=== PATIENT | female | born 1985 | race Caucasian/White ===

== ENCOUNTER 2020-08-12 10:37 | Outpatient (CLI) | payer OTHER, SELFPAY ==
--- NOTE | 2020-08-12 12:00 | NEURO_ITS ---
Impression: # Complains of tingling and pain in hands. # Mild evolving right Carpal Tunnel Syndrome. # No ulnar neuropathy. # Normal needle/EMG exam. Nerve Conduction Studies Anti Sensory Summary Table Stim Site NR Peak (ms) P-T Amp (?V) Site1 Site2 Delta-P (ms) Dist (cm) Diego (m/s) Left Median Anti Sensory (2-3nd Digit) Wrist 3.0 97.4 Wrist 2-3nd Digit 3.0 14.0 47 Wrist 2.8 84.2 Wrist 2-3nd Digit 3.0 14.0 47 Right Median Anti Sensory (2-3nd Digit) Wrist 2.8 78.4 Wrist 2-3nd Digit 2.8 14.0 50 Wrist 2.7 70.3 Wrist 2-3nd Digit 2.8 14.0 50 Left Radial Anti Sensory (Base 1st Digit) Wrist 1.9 19.8 Wrist Base 1st Digit 1.9 0.0 Right Radial Anti Sensory (Base 1st Digit) Wrist 2.1 27.2 Wrist Base 1st Digit 2.1 0.0 Left Ulnar Anti Sensory (5th Digit) Wrist 2.4 41.6 Wrist 5th Digit 2.4 14.0 58 Right Ulnar Anti Sensory (5th Digit) Wrist 2.1 44.6 Wrist 5th Digit 2.1 14.0 67 Motor Summary Table Stim Site NR Onset (ms) O-P Amp (mV) Site1 Site2 Delta-0 (ms) Dist (cm) Diego (m/s) Left Median Motor (Abd Poll Brev) Wrist 3.4 4.3 Elbow Wrist 5.0 31.0 62 Elbow 8.4 2.0 Right Median Motor (Abd Poll Brev) Wrist 3.5 1.5 Elbow Wrist 4.8 29.0 60 Elbow 8.3 1.1 Left Ulnar Motor (Abd Dig Minimi) Wrist 2.6 6.1 A Elbow Wrist 5.0 30.0 60 A Elbow 7.6 3.0 Right Ulnar Motor (Abd Dig Minimi) Wrist 2.2 5.6 A Elbow Wrist 4.8 29.0 60 A Elbow 7.0 4.7 F Wave Studies NR F-Lat (ms) L-R F-Lat (ms) Left Median (Mrkrs) (Abd Poll Brev) 27.86 1.14 Right Median (Mrkrs) (Abd Poll Brev) 26.72 1.14 Left Ulnar (Mrkrs) (Abd Dig Min) 27.45 0.02 Right Ulnar (Mrkrs) (Abd Dig Min) 27.47 0.02 EMG Side Muscle Nerve Root Ins Act Fibs Amp Dur Recrt Comment Right 1stDorInt Ulnar C8-T1 Nml Nml Nml Nml Nml Right Ext Indicis Radial (Post Int) C7-8 Nml Nml Nml Nml Nml Right Ext Digitorum Radial (Post Int) C7-8 Nml Nml Nml Nml Nml Right BrachioRad Radial C5-6 Nml Nml Nml Nml Nml Right PronatorTeres Median C6-7 Nml Nml Nml Nml Nml Right Abd Poll Brev Median C8-T1 Nml Nml Nml Nml Nml Left 1stDorInt Ulnar C8-T1 Nml Nml Nml Nml Nml Left Ext Indicis Radial (Post Int) C7-8 Nml Nml Nml Nml Nml Left Ext Digitorum Radial (Post Int) C7-8 Nml Nml Nml Nml Nml Left BrachioRad Radial C5-6 Nml Nml Nml Nml Nml Left PronatorTeres Median C6-7 Nml Nml Nml Nml Nml Left Abd Poll Brev Median C8-T1 Nml Nml Nml Nml Nml MTDD
== END 2020-08-12 10:38 | disposition home or self-care (01) ==
LOC: ANHNEURO 10:38
PROVIDERS: PCP Internal Medicine; Visit Provider Plastic Surgery
DX: R20.2 Paresthesia of skin (principal); G56.01 Carpal tunnel syndrome, right upper limb
CPT/HCPCS: 95886; 95911

== ENCOUNTER → 2020-08-20 15:23 | Outpatient (CLI) | payer OTHER, SELFPAY ==
--- NOTE | ~2020-08-20 | XR_ITS ---
EXAMINATION: XR wrist LT min 3V, XR wrist RT min 3V DATE: 08/20/2020 15:47 INDICATION: Bilateral wrist pain. TECHNIQUE: 1. Posteroanterior, ulnar deviation, oblique, and lateral views of the left wrist were obtained. 2. Posteroanterior, ulnar deviation, oblique, and lateral views of the rightr wrist were obtained. 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 Alignment is otherwise normal. No fracture. Remaining joint spaces are relatively preserved. No cortical erosions or suggest osteonecrosis. IMPRESSION: 1. Symmetric bilateral 3-4 mm ulnar minus variance with moderate osteoarthritis at the distal radioul samuel joints Reviewed, dictated and finalized at location B. CTOR OF CARDIOLOGY IMPRESSION: 1. 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
== END ==
PROVIDERS: Visit Provider Plastic Surgery
DX: M19.031 Primary osteoarthritis, right wrist (principal); M19.032 Primary osteoarthritis, left wrist
CPT/HCPCS: 73110

== ENCOUNTER → 2020-08-20 15:24 | Outpatient (CLI) | payer OTHER, SELFPAY ==
--- NOTE | ~2020-08-20 | XR_ITS ---
EXAMINATION: XR lumbar spine 2-3V EXAM DATE: 08/20/2020 15:46 INDICATION: Dorsalgia. Right lower back pain. Symptoms 5 years. TECHNIQUE: Lumber spine frontal, lateral, lateral L5-S1 projections for interpretation. There is no prior study for comparison. FINDINGS: There is about 6 mm anterolisthesis L4 on L5 with mild loss of this disc height. The verte bral body and disc heights are otherwise well maintained. The vertebral bodies are otherwise aligned. There is moderate lower lumbar facet arthropathy. No spondylolysis. Sacrum, sacroiliac joints, sacra l arcuate lines are intact. Paraspinal soft tissue is unremarkable. IMPRESSION: 1. L4-5 grade 1 anterolisthesis. 2. Moderate lower lumbar facet arthropathy. Reviewed, dictated and finalized at location A. T [facility]
== END ==
PROVIDERS: Visit Provider Internal Medicine
DX: M54.9 Dorsalgia, unspecified (principal)
CPT/HCPCS: 72100

== ENCOUNTER → 2020-10-08 14:04 | Outpatient (CLI) | payer OTHER, SELFPAY ==
--- NOTE | ~2020-10-08 | XR_ITS ---
. EXAMINATION: XR knee LT 3V DATE: 10/08/2020 14:28 INDICATION: Left knee pain TECHNIQUE: [place] and standing AP and lateral views of the left knee were obtained COMPARISON: None. FINDINGS: There is mild anterior and lateral subluxation of the tibial plateau relative to the distal femur. Th ere is also mild lateral patellar subluxation. No fracture. Moderate joint space narrowing at the med ial tibial plateau. Moderate to large marginal osteophytes in all 3 compartments. Small left knee mercy nt effusion at the suprapatellar pouch. There are couple small ossicles likely loose osteochondral jaimie dies within a recess of the posterior medial aspect of the knee. IMPRESSION: 1. Moderate medial compartment predominant left knee tricompartmental osteoarthritis with small knee joint effusion. Reviewed, dictated and finalized at location A. IMPRESSION: 1. Moderate medial compartment predominant left knee tricompartmental osteoarth ritis with small knee joint effusion.
== END ==
PROVIDERS: PCP Internal Medicine; Visit Provider Internal Medicine
DX: M25.562 Pain in left knee (principal); M17.12 Unilateral primary osteoarthritis, left knee
CPT/HCPCS: 73562

== ENCOUNTER 2022-12-08 00:58 | Day surgery (SDC) | payer OTHER, SELFPAY ==
[2022-12-07 10:42] VITALS: BMI 27.9
--- NOTE | 2022-12-07 10:47 | PC.NURSE ---
Report to the Outpatient Waiting Room, entrance under the green pavilion located off [facility], at time 1400 on date 12/08/22. Planned Procedure Time: 1600. Time changes happen often and if your time is changed the preop area will call you the afternoon before. - You and your visitor will be asked to self-screen and do not enter if you have any COVID symptoms. - A mask is optional within the hospital at this time. Patients may have clear liquids (water, carbonated beverages, clear teas, apple juice) until 3 hours prior to surgery with a maximum of 20 ounces. - No food from midnight until time of surgery Take the following medications with a SIP of water the morning of surgery: ANTIBIOTIC, XANAX IF NEEDED DO NOT STOP ANY OF YOUR OTHER PRESCRIPTION MEDICATIONS PRIOR TO SURGERY ?EXCEPT THE FOLLOWING Medications to discontinue per physician: VITAMINS Date to take last dose: NO MORE UNTIL AFTER SURGERY Please no make-up, nail slovak, hairspray, perfume, deodorant, or body powder the day of surgery. No jewelry (including any body piercings) or valuables the day of surgery, leave them at home. Please take a shower or bath the night before, or the morning of, surgery with an antibacterial soap. Wear comfortable, loose fitting clothing. - Jewelry must be removed prior to entering the operating room. Rings and piercings that are not removed may be cut off. - The hospital will not accept responsibility for valuables. - Please leave all valuables, including medications, at home the day of surgery. If you are going home after surgery, a licensed driver helper must drive you home. - NO public transportation without another adult if you receive anesthesia. - We recommend that an adult stay with you for 24 hours following discharge. - We also recommend that you do not drive, make important decision, drink alcoholic beverages, or take any drugs that were not prescribed by your health care provider for at least 24 hours after your discharge time. Follow any additional instructions given to you from your surgeon. If you or anyone in your household have experienced Covid symptoms in the past week, please notify your surgeon or the nurse liaison at the phone number below for possible testing. Telephone instructions given to PT - WLAESKA GARCÍA and asked if any additional questions and then verbalized understanding. Patient advised to call surgeon office or pre surgery nurse liaison [phone] if any additional questions.
--- NOTE | 2022-12-08 06:16 | P.HP_ITS ---
H&P: HPI History of Present Illness Date/Time: 12/08/22 06:16 Chief Complaint: Incomplete Ab Narrative: this is a 37 year 1 para 0 under 1st trimester with ultrasound proven incomplete A/ B. She was offered watchful waiting versus suction D&C in opted for the latter. Risks and benefits were reviewed great detail [facility] Surgical History Surgical History History of removal of laparoscopic gastric banding device Family History Family History Grandparent Family history of lung cancer Other Family history of obesity Social History Social History Smoking packs per day: 0.5 Smoking cigarettes per day: 10.0 Years smoked: 20 Smoking pack-years: 10.00 Smoking status: Former smoker Tobacco type: cigarettes Second hand tobacco smoke exposure: No Smoking end date: 06/18/20 Alcohol intake: never Substance use: current Substance use type: marijuana Other substance usage details: NOT WHILE Living arrangements: with family Spiritual care concerns: No Meds Home Medications and Allergies Home Medications Medication Instructions Recorded Confirmed Type alprazolam 0.25 mg tablet (Xanax) 0.25 mg PO BID PRN Anxiety 07/29/19 12/07/22 History multivitamin 1 tablet PO DAILY 02/14/22 12/07/22 History penicillin V potassium 500 mg 500 mg PO TID 12/07/22 12/07/22 History tablet Allergies Allergy/AdvReac Type Severity Reaction Status Date / Time No Known Allergies Allergy Verified 12/07/22 10:40 Exam Const: General: cooperative, healthy appearing and comfortable Nutritional Appearance: average body habitus Orientation/consciousness: oriented to person, oriented to place and oriented to time HENMT: Head: normal to inspection Resp: Effort & Inspection: normal respiratory effort Cardio: Rate: regular rate Rhythm: regular rhythm Heart sounds: S1 normal heart sound present and S2 normal heart sound present GI: Inspection: normal to inspection : External Female Exam: normal external appearance Speculum Exam - Vagina: normal appearance of the vagina Speculum Exam - Cervix: normal appearance of the cervix Bimanual exam- vagina & uterus: enlarged Bimanual Exam- Adnexa, other: normal adnexae Assessment and Plan Assessment and plan (1) Incomplete : Code(s): O03.4 - Incomplete spontaneous without complication Status: Acute Plan suction dilatation curettage
--- NOTE | 2022-12-08 06:20 | WPDHPUPDATE1 ---
History and Physical Update Update Date/Time: 12/08/22 06:20 History and Physical has been reviewed, including an updated exam of the patient. There are NO changes in the patient's condition. Risks, benefits, and alternatives have been discussed and questions answered. Patient agrees to proceed with procedure.
[2022-12-08] MEDS: ACETAMINOPHEN 500 MG TABLET 1000 MG PO (14:30)
[2022-12-08 14:36] VITALS: BP 107/72; PULSE 71; RESP 16; TEMP 36.6; O2SAT 100
[2022-12-08] MEDS: LACTATED RINGERS 1,000 ML 30 ML IV CONT (14:49)
[2022-12-08 14:54] LABS: Hemoglobin 12.9 g/dL (12.0-15.0)
--- NOTE | 2022-12-08 15:03 | WPDANESEPPF ---
Anes - Initial Pre Proc Eval Procedure: Operation Date: 12/08/22 16:00 Proposed Procedures p Suction Dilation and Curettage - Aron Frost MD Date/Time: 12/08/22 15:03 Surgeon: Aron Frost MD Pre Op Diagnosis: Missed Ab Patient Data Age: 37 Gender: F Height: 1.75 m Weight: 85.4 kg Last Vital Signs Temp 36.6 C 12/08/22 14:36 Pulse 71 12/08/22 14:36 Resp 16 12/08/22 14:36 BP 107/72 12/08/22 14:36 Pulse Ox 100 12/08/22 14:36 O2 Del Method Room Air 12/08/22 14:36 Allergies Allergy/AdvReac Type Severity Reaction Status Date / Time No Known Allergies Allergy Verified 12/08/22 14:23 Home Medications Medication Instructions Recorded Confirmed Type alprazolam 0.25 mg tablet (Xanax) 0.25 mg PO BID PRN Anxiety 07/29/19 12/07/22 History multivitamin 1 tablet PO DAILY 02/14/22 12/07/22 History penicillin V potassium 500 mg 500 mg PO TID 12/07/22 12/07/22 History tablet hydrocodone 5 mg-acetaminophen 325 1 tablet PO Q4H PRN pain #14 tabs 12/08/22 Rx mg tablet Laboratory Tests 12/08/22 14:46 Hgb 12.9 g/dL (12.0-15.0) Hct 40.0 % (37.0-47.0) Patient hx anesthesia problems: none Family hx anesthesia problems: none Results Review: All pre-operative results and documents have been reviewed as part of the pre-operative evaluation. [facility], [facility] Past Medical History Medical History (Updated 12/08/22 @ 15:06 by Augustin Emmanuel DO) Laura-Danlos syndrome POTS (postural orthostatic tachycardia syndrome) Surgical History Surgical History (Updated 12/08/22 @ 15:06 by Augustin Emmanuel DO) History of removal of laparoscopic gastric banding device S/P gastric bypass Family History Family History Grandparent Family history of lung cancer Other Family history of obesity Social History Social History Smoking packs per day: 0.5 Smoking cigarettes per day: 10.0 Years smoked: 20 Smoking pack-years: 10.00 Smoking status: Former smoker Tobacco type: cigarettes Second hand tobacco smoke exposure: No Smoking end date: 06/18/20 Alcohol intake: never Substance use: current Substance use type: marijuana Other substance usage details: NOT WHILE Living arrangements: with family Spiritual care concerns: No Anes - Eval Final PreProcedure Day of Procedure 12/08/22 15:03 Patient weight: overweight Heart: regular rate and rhythm Lungs: clear to auscultation Airway: Mallampati scale class II Neurological: alert and oriented Last oral intake: >/= 8 hours ASA classification: III Emergent: no Anesthetic plan: proceed Anesthesia type and monitoring: general GIVS and standard monitoring Results Review: All pre-operative results and documents have been reviewed as part of the pre-operative evaluation. Informed Consent: The patient's anesthetic plan and its attendant risks and benefits were discussed with the patient/family/POA. Questions were solicited and answers provided to the satisfaction of the patient/family/POA.
[2022-12-08] MEDS: LIDOCAINE HCL 1% LOCAL INJ 10 ML VIAL INFILTRATE (15:40)
--- NOTE | 2022-12-08 15:47 | W.PM.PROC2 ---
Procedure Note - Detailed Date of Procedure 12/08/22 Pre-op Diagnosis Missed Ab Post-op Diagnosis Same Procedure Performed Suction dilatation curettage Surgeon Aron Frost MD Anesthesia MAC and Local Indications 37-year-old female with incomplete AB Findings uterus sounded to 8cm. Tissue consistent with products of conception Description of Procedure patient was prepped draped in the normal sterile fashion placed in the dorsal lithotomy position. Under excellent IV sedation weighted speculum was placed in posterior fornix vagina. Anterior lip grasped with single-tooth tenaculum. 2.5cc of 1% xylocaine anesthesia placed at 2, 4, 8, 10:00 a.m. of the cervix. Uterus sounded to 9cm. Serial dilatation with fragmented dilators performed followed passes the 9. Suction curette. A moderate amount of tissue was able to be retrieved. When a good grating sound was heard. The instruments removed. Blood loss estimated 25cc. All sponge, needle, instrument counts were correct. There were no immediate complications she did not require RhoGAM if she is Rh positive Estimated Blood Loss 25 Drains No Packing No Pathology Yes Complications No immediate complications Condition Stable Disposition PACU
[2022-12-08 15:49] VITALS: BP 117/69; PULSE 76; RESP 16; O2SAT 100
[2022-12-08 16:15] VITALS: BP 104/73; PULSE 64; RESP 16; O2SAT 100
[2022-12-08] MEDS: oxyCODONE HCL (*CRX) 5 MG TAB IR PO (16:32)
[2022-12-08 16:45] VITALS: BP 113/76; PULSE 54; RESP 16
== END 2022-12-08 17:03 | disposition home or self-care (01) ==
PROVIDERS: PCP Internal Medicine; Visit Provider Obstetrics & Gynecology
PROC: (CPT 59812; principal; 2022-12-08 16:00)
DX: O03.4 Incomplete spontaneous abortion without complication (principal); Z87.891 Personal history of nicotine dependence
CPT/HCPCS: 59812; 36415; 85014; 85018; 85461; 86850; 86900; 86901; 88305; A9270; J1100; J1885; J2250; J2405; J2704; J3010; J7120

== ENCOUNTER 2023-12-11 01:14 | Inpatient (IN) | payer OTHER, SELFPAY ==
[2023-12-11] VITALS (83 sets, daily range): BP systolic 102–145; BP diastolic 63–89; PULSE 25–152; RESP 14–18; TEMP 36.6–37.5; O2SAT 79–100; BMI 37.0
[2023-12-11] MEDS: LACTATED RINGERS 1,000 ML 125 ML IV CONT ×2 (01:46→02:20)
[2023-12-11 01:48] LABS: Basophils Percent Auto 0.3 % (0.2-1.2); Eosinophils Absolute Auto 0.1 K/mm3 (0-0.3); Eosinophils Percent Auto 0.4 % (0-4.4); Hematocrit 39.8 % (37.0-47.0); Hemoglobin 13.4 g/dL (12.0-15.0); Immature Granulocyte Absolute 0.09 K/mm3 (0.00-0.031); Immature Granulocyte Percent A 0.7 % (0-0.5); Lymphocytes Absolute Auto 4.32 K/mm3 (0.9-3.2); Lymphocytes Percent Auto 31.3 % (18.3-44.2); Mean Corpuscular HGB Conc 33.7 g/dl (32-36); Mean Corpuscular Hemoglobin 31.8 pg (26-34); Mean Corpuscular Volume 94.3 fl (80-100); Mean Platelet Volume 11.5 fl (7.4-10.4); Monocytes Absolute Auto 0.9 K/mm3 (0.1-0.6); Monocytes Percent Auto 6.8 % (2.6-8.5); Neutrophils Absolute Auto 8.3 K/mm3 (1.3-6.7); Neutrophils Percent Auto 60.5 % (45.5-73.1); Platelet Count Result 225 k/mm3 (150-375); Red Blood Count 4.22 M/mm3 (4.2-5.4); Red Cell Distribution Width 12.7 % (11.5-14.5); White Blood Count 13.8 K/mm3 (4.5-10.0)
--- NOTE | 2023-12-11 01:54 | WPDANESEPP ---
Anes - Eval Pre Procedure Procedure: Labor epidural Date/Time: 12/11/23 01:54 Preop Diagnosis: Abdominal pain with contractions Pre Op Diagnosis: Contractions Patient Data Age: 38 Gender: F Height: 1.75 m Weight: 114 kg Last Vital Signs Pulse 67 12/11/23 01:53 BP 141/81 H 12/11/23 01:53 Pulse Ox 100 12/11/23 01:52 Allergies Allergy/AdvReac Type Severity Reaction Status Date / Time No Known Allergies Allergy Verified 11/16/23 15:39 Home Medications Medication Instructions Recorded Confirmed Type multivitamin 1 tablet PO DAILY 02/14/22 11/16/23 History famotidine 10 mg tablet 10 mg PO DAILY 11/16/23 11/16/23 History Laboratory Tests 12/11/23 01:41 WBC Pending RBC Pending Hgb Pending Hct Pending MCV Pending MCH Pending MCHC Pending RDW Pending Plt Count Pending MPV Pending Immature Gran % (Auto) Pending Neut % (Auto) Pending Lymph % (Auto) Pending Calhoun % (Auto) Pending Eos % (Auto) Pending Baso % (Auto) Pending Lymph # (Auto) Pending Calhoun # (Auto) Pending Eos # (Auto) Pending Baso # (Auto) Pending Abs Immat Gran (auto) Pending Absolute Neuts (auto) Pending Absolute Nucleated RBC Pending Nucleated RBC % Pending RPR Pending HIV 1&2 Ab/P24 Ag 4thGn Pending : gestational age HCG: positive Patient hx anesthesia problems: none Family hx anesthesia problems: none Results Review: All pre-operative results and documents have been reviewed as part of the pre-operative evaluation. [facility] Past Medical History Medical History Anxiety disorder, unspecified Laura-Danlos syndrome Hypothyroidism Morbid obesity POTS (postural orthostatic tachycardia syndrome) Surgical History Surgical History History of removal of laparoscopic gastric banding device S/P gastric bypass Family History Family History Grandparent Family history of lung cancer Father Leukemia Mother Thyroid cancer Other Family history of obesity Social History Social History Smoking packs per day: 0.5 Smoking cigarettes per day: 10.0 Years smoked: 20 Smoking pack-years: 10.00 Smoking status: Former smoker Tobacco type: cigarettes Second hand tobacco smoke exposure: No Smoking end date: 06/18/20 Alcohol intake: never Substance use: former Substance use type: marijuana Other substance usage details: NOT WHILE Living arrangements: with family Spiritual care concerns: No Exam Day of Procedure 12/11/23 01:54 Patient weight: morbidly obese
[2023-12-11 02:40] LABS: HIV 1/2 Ab P24 Ag Result Negative (Negative)
--- NOTE | 2023-12-11 02:45 | LDADM ---
This patient, Brea Biswas, was admitted to Labor/Delivery/Recovery 105 on 12/11/23 at 01:14. Plans for labor, pain management and were discussed with patient. Patient/family oriented to hospital policies and general routines including ID bracelet, bed and alarms, visiting hours, pain management, procedures, bathroom and other care routines, personal items, smoking policy, room service/diet and guest tray routines, infant security routines, and visiting hours. Patient/Family are encouraged to report perceived risks to care and to ask questions if they do not understand what they are told or what they should do. See OBIX for further documentation.
--- NOTE | 2023-12-11 03:57 | PM.IMHP ---
H&P: HPI History of Present Illness Date/Time: 12/11/23 03:57 Chief Complaint: Labor at term Narrative: 38-year-old 2 para 0010 last menstrual period was 03/08/2023 EDC is 11/19, presents to the labor. has been uncomplicated. [facility] Past Medical History Medical History Anxiety disorder, unspecified Laura-Danlos syndrome Hypothyroidism Morbid obesity POTS (postural orthostatic tachycardia syndrome) Surgical History Surgical History History of removal of laparoscopic gastric banding device S/P gastric bypass Family History Family History Grandparent Family history of lung cancer Father Leukemia Mother Thyroid cancer Other Family history of obesity Social History Social History Smoking packs per day: 0.5 Smoking cigarettes per day: 10.0 Years smoked: 20 Smoking pack-years: 10.00 Smoking status: Former smoker Tobacco type: cigarettes Second hand tobacco smoke exposure: No Smoking end date: 06/18/20 Alcohol intake: never Substance use: former Substance use type: marijuana Other substance usage details: NOT WHILE Do You Feel Safe in your Home?: Yes Lack of Transportation: No Lack of Food: Never True Current Housing: I Have Housing Concerned About Future Housing: No Difficulty Paying Gas/Electric Bills: No Difficulty Paying for Meds: No Currently Unemployed: No Education: Master's Degree or Higher Difficulty w/ Childcare or Family Care: No Living arrangements: with family Spiritual care concerns: No Meds Home Medications and Allergies Home Medications Medication Instructions Recorded Confirmed Type multivitamin 1 tablet PO DAILY 02/14/22 11/16/23 History famotidine 10 mg tablet 10 mg PO DAILY 11/16/23 11/16/23 History Allergies Allergy/AdvReac Type Severity Reaction Status Date / Time No Known Allergies Allergy Verified 11/16/23 15:39 Vital Signs Vital Signs - 24 hr 12/11/23 01:45 12/11/23 01:47 12/11/23 01:52 Pulse Rate 64 73 Blood Pressure 136/71 124/87 Pulse Oximetry 100 Oxygen Delivery 12/11/23 01:53 12/11/23 01:55 12/11/23 01:57 Pulse Rate 67 76 Blood Pressure 141/81 H 139/72 Pulse Oximetry 100 Oxygen Delivery 12/11/23 01:58 12/11/23 02:00 12/11/23 02:02 Pulse Rate 68 152 H Blood Pressure 119/77 131/81 Pulse Oximetry 100 Oxygen Delivery 12/11/23 02:03 12/11/23 02:05 12/11/23 02:07 Pulse Rate 65 73 Blood Pressure 121/81 123/74 Pulse Oximetry 100 Oxygen Delivery 12/11/23 02:09 12/11/23 02:10 12/11/23 02:13 Pulse Rate 64 75 82 Blood Pressure 120/66 133/75 109/74 Pulse Oximetry 100 Oxygen Delivery 12/11/23 02:15 12/11/23 02:18 12/11/23 02:20 Pulse Rate 57 L 57 L 57 L Blood Pressure 115/73 125/76 126/78 Pulse Oximetry 100 100 Oxygen Delivery 12/11/23 02:23 12/11/23 02:25 12/11/23 02:28 Pulse Rate 59 L 57 L 80 Blood Pressure 123/75 125/76 132/88 Pulse Oximetry 100 Oxygen Delivery 12/11/23 02:30 12/11/23 02:33 12/11/23 02:35 Pulse Rate 57 L 60 72 Blood Pressure 119/78 129/85 124/86 Pulse Oximetry 100 100 Oxygen Delivery 12/11/23 02:38 12/11/23 02:40 12/11/23 02:43 Pulse Rate 78 79 75 Blood Pressure 137/76 124/83 128/86 Pulse Oximetry 100 Oxygen Delivery 12/11/23 02:45 12/11/23 02:48 12/11/23 02:50 Pulse Rate 59 L 65 60 Blood Pressure 145/78 H 130/74 132/87 Pulse Oximetry 100 100 Oxygen Delivery 12/11/23 02:55 12/11/23 03:00 12/11/23 03:05 Pulse Rate 55 L Blood Pressure 125/80 Pulse Oximetry 100 100 100 Oxygen Delivery 12/11/23 03:10 12/11/23 03:15 12/11/23 03:20 Pulse Rate 62 Blood Pressure 127/75 Pulse Oximetry 100 100 100 Oxygen
[2023-12-11] MEDS: LACTATED RINGERS 500 ML 999 ML IV CONT (05:17)
--- NOTE | 2023-12-11 05:26 | P.PCNOB_ITS ---
OB - Vaginal Delivery Note Procedure Delivery date: 12/11/23 Induction method: None Delivery monitor: External FHT and External Uterine Route of delivery: Episiotomy description: None Laceration Description: Perineal - 1st Degree Delivery repair: vicryl Specimen: No Quantitative Blood Loss (ml): 61 Anesthesia type: Epidural Disposition: Floor Complications: No immediate complications Narrative: Patient was admitted in active labor. Epidural anesthesia was placed she progressive remarkable for stage of labor to completely dilated pushed delivered the head spontaneously in the ISIAH position. Nuchal cord checked noted be loose x1 room occiput. Anterior posterior shoulder delivered spontaneously. Cord clamped x2 and passed off placenta intact spontaneously. Two Pitocin placed in IV to help firm. A 1st degree tear was seen in [id number] placed with she tolerated procedure complications [place] Baby Date of : 12/11/23 Time of : 05:12 Weeks of gestation at delivery: 40 Infant gender: Male Weight (pounds): 8 Weight (ounces): 6 presentation: vertex position: Right Occiput Anterior Placenta delivery description: Spontaneous Cord Vessel Description: 3 Vessels, Nuchal Cord and Loose score one minute: 8 score five minutes: 8
--- NOTE | 2023-12-11 05:28 | PM.DS ---
DS: Admitting Diagnosis Discharge Date 12/12/2023 Admitting Diagnosis term DS: Discharge Diagnosis Discharge Diagnosis (1) Term : Code(s): Z34.90 - Encounter for supervision of normal , unspecified, unspecified trimester Status: Acute DS: Summary Hospital Course Reason for hospitalization: patient was admitted in active labor on 12/11/2023 underwent spontaneous vaginal delivery with first-degree tear Hospital Course: patient's hospital course unremarkable. She remained afebrile. She up, voiding without difficulty, ambulating, eating regular diet, generally without complaints. Time Spent with Patient Time attestation: Total time spent providing and/or coordinating discharge services: Exam Const: General: cooperative, healthy appearing, comfortable and average body habitus Orientation/consciousness: oriented to person, oriented to place and oriented to time Resp: Effort & Inspection: normal respiratory effort Cardio: Rate: regular rate Rhythm: regular rhythm Heart sounds: S1 normal heart sound present and S2 normal heart sound present GI: Inspection: normal to inspection DS: Data Data Completed and Pending Labs on day of discharge: Labs from last 24 hours 12/11/23 01:41 WBC 13.8 H RBC 4.22 Hgb 13.4 Hct 39.8 MCV 94.3 MCH 31.8 MCHC 33.7 RDW 12.7 Plt Count 225 MPV 11.5 H Immature Gran % (Auto) 0.7 H Neut % (Auto) 60.5 Lymph % (Auto) 31.3 [place] % (Auto) 6.8 Eos % (Auto) 0.4 Baso % (Auto) 0.3 Lymph # (Auto) 4.32 H [place] # (Auto) 0.9 H Eos # (Auto) 0.1 Baso # (Auto) 0.0 Abs Immat Gran (auto) 0.09 H Absolute Neuts (auto) 8.3 H Absolute Nucleated RBC 0.000 Nucleated RBC % 0.0 RPR Pending HIV 1&2 Ab/P24 Ag 4thGn Negative Blood Type O Positive Antibody Screen Negative Discharge Plan Discharge Attending physician on discharge: Aron Arreguin Discharging Clinician: Aron Arreguin Patient Disposition: Home, Self-Care Activity: may shower and pelvic rest Diet: heart healthy Wound Care Instructions: follow printed instructions Patient Instructions: Antibiotic Form Stand Alone Forms: General Discharge Information Follow-up/Referrals: Aron Arreguin MD [Physician] - Discharge Medications: No Action multivitamin Tablet 1 tablet PO DAILY famotidine 10 mg Tablet 10 mg PO DAILY Date of admission: 12/11/23 01:14 Primary Care Provider: Breezy Mohan Admitting Provider: Aron Arreguin Attending physician on admission: Aron Arreguin Condition: Stable
[2023-12-11] MEDS: OXYTOCIN 30 UNITS/NS 500 ML 30 UNITS/500 ML BAG 125 UNITS IV CONT (05:50)
[2023-12-11] MEDS: IBUPROFEN 600 MG TABLET PO ×2 (07:57→20:44)
--- NOTE | 2023-12-11 08:00 | PC.NURSE ---
Patient transferred to post room #291 via wheelchair. Support person present. Oriented to unit, room, information board, rooming in, admission packet and security measures. Patient verbalizes understanding.
[2023-12-11] MEDS: DOCUSATE SODIUM 100 MG CAPSULE PO ×2 (09:18→16:01)
[2023-12-11] MEDS: MULTIVIT/MIN/PREN/FOL AC/IRON TABLET 1 TAB PO (09:18)
--- NOTE | 2023-12-11 12:31 | PC.NURSE ---
0845 Introductions were made, then consulted with patient to assess needs related to . Mother led the conversation with her?plans to feed?her and the?experience so far. Encouraged understanding of the benefits of skin to skin (demonstrating unwrapping infant and placing upright on her chest), stimulating with massage touch, changing positions to encourage wakefulness, how to watch for early feeding cues, responsive feeding, feeding on demand (aiming for 8-12 times in 24 hours, about every 2-3 hours), milk production, building/maintaining a milk supply, duration of feeding, signs of adequate intake/output and how to record on the feeding sheet. Mother works well with her with encouragement and education. Reviewed positioning and ear, shoulder, hip alignment, supporting the breast to facilitate a deep latch, asymmetrical latch (off-center), leading with the chin with a big, open, wide gape and body close to mother. Infant latched optimally to the right breast in cross cradle position. Education given to the mother of how to visualize the suckling (with good rocking jaw motion), swallows (dropping of the lower jaw) and how to listen for drinking at the breast (the ka sound). Infant was able to maintain latch without pain to mother protecting the nipple with optimal positioning and latching. Reviewed comfort measures of healing with a warm, wet washcloth to rinse breast, then leave open to air-dry, good handwashing when or touching the breast/nipples to prevent infection. Mother voiced understanding of skin to skin, stimulating with massage touch, responsive feedings, hand expressed colostrum, talking to infant to encourage if it has been 2 -2.5 hours since the start of the last , to call if does not latch, or if there is discomfort with . Resources used for education were facilitated with the [visual educational handouts/ tool/mom and baby guide], Inpatient/outpatient resources provided with business card, feeding sheet, name written on the communication board, and the mom/baby guide. Parents voiced understanding of information, demonstrated learning and will call if there is a request for assistance. Reported to the Primary RN.
[2023-12-11] MEDS: FAMOTIDINE 20 MG TABLET PO (14:26)
[2023-12-11 16:01] LABS: Rapid Plasma Reagin Non-Reactive (NonReactive)
[2023-12-12 05:05] LABS: Hematocrit 28.6 % (37.0-47.0); Hemoglobin 9.5 g/dL (12.0-15.0)
--- NOTE | 2023-12-12 06:15 | PM.OBPNVD ---
OB - PN: Subj Subjective Date/time seen: 12/12/23 06:15 Patient comments: no complaints and pain well controlled baby status: doing well and nursing well OB - PN: Obj Data Labs 12/12/23 03:47 Labs: Laboratory Results - last 24 hr 12/11/23 12/12/23 01:41 03:47 Hgb 9.5 L D Hct 28.6 L RPR Non-reactive OB - PN A/P Plan day: 1 Plan: routine care, discharge home and follow up 6 weeks Comments: circ son today Time Spent With Patient Time: Total time spent is greater than 50% in coordination of care (as documented) at patient's floor/unit and/or counseling patient: Time with patient: less than 15 minutes Exam Const: General: cooperative, healthy appearing and comfortable Nutritional Appearance: average body habitus Orientation/consciousness: oriented to person, oriented to place and oriented to time Resp: Effort & Inspection: normal respiratory effort Cardio: Rate: regular rate Rhythm: regular rhythm Heart sounds: S1 normal heart sound present and S2 normal heart sound present
[2023-12-12] MEDS: WITCH HAZEL 40 PADS 1 PAD TOPICAL (08:16)
[2023-12-12] MEDS: MULTIVIT/MIN/PREN/FOL AC/IRON TABLET 1 TAB PO (08:16)
[2023-12-12] MEDS: ACETAMINOPHEN 325 MG TABLET 650 MG PO ×2 (08:16→16:26)
[2023-12-12] MEDS: DOCUSATE SODIUM 100 MG CAPSULE PO ×2 (08:16→16:26)
[2023-12-12] MEDS: POLYSACCHARIDE IRON COMPLEX 150 MG CAPSULE PO ×2 (08:16→16:26)
[2023-12-12 09:20] VITALS: BP 121/79; PULSE 61; RESP 18; TEMP 36.4; O2SAT 99
--- NOTE | 2023-12-12 14:22 | WPDANLDPN2 ---
Anes-Prog Note L&D Date/Time: 12/12/23 14:22 Comfortable throughout: labor and delivery Neuraxial method: epidural Epidural/Spinal procedure site: clean & non-tender Neuro status: Neuro function grossly intact. Cardiovascular status: normal Respiratory status: normal Airway patency: baseline Mental status: baseline Post-Op hydration status: normal Vital Signs: Last Vital Signs Temp 36.4 C 12/12/23 09:20 Pulse 61 12/12/23 09:20 Resp 18 12/12/23 09:20 BP 121/79 12/12/23 09:20 Pulse Ox 99 12/12/23 09:20 O2 Del Method Room Air 12/11/23 02:00 Pain score (VAS): 10 Post-procedural complaints: other (pt states epidural never really worked despite several bolus doses) Patient feedback: Patient satisfied with anesthetic care.
[2023-12-12] MEDS: SIMETHICONE 80 MG TAB.CHEW PO (14:37)
--- NOTE | 2023-12-12 14:57 | PC.NURSE ---
[id number]. Consulted with patient to assess needs related to . Discussed with mother her successes, concerns and any questions she has. We reviewed working with the infant, supporting breast, protecting her nipples with an optimal deep latch, good positioning, and good hand washing. Encouraged understanding the benefits of skin to skin, responding to feeding cues, frequencies of feeding 8-12 times in 24 hours (approximately 2-3 hours), duration of feedings, milk production, intake/output feeding sheet and signs of adequate intake encouraging swallowing at the breast. Reviewed positioning and alignment, supporting breast, off-centered (asymmetrical latch) and leading with the chin with big, open, wide gape. Infant unable to latch to either breast at this time. Infant circumcised this morning @0600 and had a dose of tylenol. Infant with a small spit up of tylenol at this time. Multiple attempts made to latch infant, infant very reluctant and sleepy at this time. Mother encouraged to do skin to skin and hand express some colostrum to feed to with nurses help. Education given to the mother of how to visualize the suckling (with good rocking jaw motion) swallows (dropping of the lower jaw) and how to listen for drinking at the breast (the ka sound). Nipple care reviewed with optimal latch, good positioning and using clean hands when touching her breast. Resources used to facilitate learning were used from the [visual handouts/ tool/mom and baby guide]. Mother voiced understanding of the education shared, to call for assistance if the infant does not latch or if there is discomfort with . Reported to the Primary RN.
--- NOTE | 2023-12-12 15:01 | PC.NURSE ---
[id number]. RN reviewed hand expression with mom and helped her hand express 0.3ml of colostrum. RN syringe fed infant while stimulating sucking reflex. RN assisted mom in latching infant to the breast. Many attempts made and unsuccessful at maintaining a latch. RN encouraged mom to supplement infant with formula at this time due to the length of time infant went without eating. RN fed infant 7ml of enfamil formula. Mother encourgaged to retry again when shows hunger cues or in the next 1-2 hours. RN reviewed importance of eating every 3 hours after they are 24 hours old. Mother verbalized understanding.
[2023-12-12 18:40] VITALS: BP 116/80; PULSE 65; RESP 12; TEMP 36.9; O2SAT 100
--- NOTE | 2023-12-13 06:49 | P.PNOB_ITS ---
OB - PN: Subj Subjective Date/time seen: 12/13/23 06:49 Patient comments: no complaints and pain well controlled baby status: doing well OB - PN: Obj Data Labs 12/12/23 03:47 OB - PN A/P Plan day: 2 Plan: routine care, discharge home and follow up 6 weeks Time Spent With Patient Time: Total time spent is greater than 50% in coordination of care (as documented) at patient's floor/unit and/or counseling patient: Time with patient: less than 15 minutes Exam Const: General: cooperative, healthy appearing and comfortable Orientat ion/consciousness: oriented to person, oriented to place and oriented to time Resp: Effort & Inspection: normal respiratory effort Cardio: Rate: regular rate Rhythm: regular rhythm Heart sounds: S1 normal heart sound present and S2 normal heart sound present GI: Inspection: normal to inspection
[2023-12-13] MEDS: POLYSACCHARIDE IRON COMPLEX 150 MG CAPSULE PO (06:52)
[2023-12-13] MEDS: MULTIVIT/MIN/PREN/FOL AC/IRON TABLET 1 TAB PO (06:52)
[2023-12-13] MEDS: WITCH HAZEL 40 PADS 1 PAD TOPICAL (06:52)
[2023-12-13] MEDS: BENZOCAINE 20% AER SPR (*SP) 56 GM CAN 1 SPRAY TOPICAL (06:52)
[2023-12-13] MEDS: DOCUSATE SODIUM 100 MG CAPSULE PO (06:52)
[2023-12-13 07:40] VITALS: BP 119/85; PULSE 60; RESP 16; TEMP 36.4; O2SAT 100
--- NOTE | 2023-12-13 09:50 | PC.NURSE ---
Mother verbalizes she is able to independently latch with appropriate positioning and alignment. She denies consistent nipple discomfort, but does say that infant had a shallow latch on the right side and she is now feeling sore. She has lanolin to use as needed. She is comfortable knowing what a deep latch is and was encouraged to call for a latch check before discharge. is currently meeting outcomes for weight, output, and jaundice. Discussed weight loss (8%) and how sleepy infant was yesterday. Mother feels infant has been more awake and feeding more consistently today. Encouraged mother to return for her scheduled [facility] and to notify the provider if is not meeting required output. Mother declines any additional assistance or education at this time. Mother is encouraged to call for assistance if her infant doesn?t latch, pain with latching, questions or concerns. Mother voiced understanding of information shared along with the mom/baby guide for an additional resource. Reported to the Primary RN.
[2023-12-14 11:36] VITALS: BP 123/66; PULSE 82; RESP 18; TEMP 36.6; O2SAT 100
== END 2023-12-13 12:32 | disposition home or self-care (01) | DRG 807 ==
LOC: ANHLDR 05:30 → ANHOB2 08:05
PROVIDERS: Admitting Provider Obstetrics & Gynecology; PCP Internal Medicine; Visit Provider Obstetrics & Gynecology
DX: O69.81X0 Labor and delivery complicated by cord around neck, without compression, not applicable or unspecified (principal); Z37.0 Single live birth; Z3A.40 40 weeks gestation of pregnancy; O70.0 First degree perineal laceration during delivery
CPT/HCPCS: 36415; 85014; 85018; 85025; 86592; 86703; 86850; 86900; 86901; A9270; G0432; J2590; J2795; J7120